=== PATIENT | female | born 1930 | race African-American/Black ===

== ENCOUNTER 2017-04-24 10:49 | Emergency (ER) | payer MEDICARE, OTHER ==
[~2017-04-24] VITALS: Ht 160 cm; Wt 60.0 kg
[~2017-04-24 10:49] MED LIST: ASA; CLONIDINE; DIAZ2TAB3; DONNATAL ELIXIR; ISOS30TA; NASOI; NITROGLYCERIN; PREVACID; VALS320T2; VER40; [UNRECOGNIZED DRUG - CODE]
[2017-04-24] MEDS ORDERED: ONDANSETRON HCL 4MG/2ML VIAL IV STA (11:06)
[2017-04-24] MEDS ORDERED: MORPHINE SULFATE 4 MG/ML CPJ (NOT FOR IM USE) IV STA (11:06)
[2017-04-24 11:41] LABS: EOSINOPHILS % 3.2 % (0.0-5.0); HEMATOCRIT. 35.8 % (36.0-48.0); HEMOGLOBIN. 11.3 g/dL (12.0-16.0); LYMPHOCYTES % 37.5 % (20.0-50.0); MEAN CORPUSCULAR HEMOGLOBIN 27.1 pg (28.0-32.0); MEAN CORPUSCULAR VOLUME 85.6 fL (81.0-99.0); MEAN PLATELET VOLUME 9.8 fl (7.4-10.4); MONOCYTES % 13.4 % (2.0-8.0); NEUTROPHILS % 44.9 % (40.0-76.0); PLATELET 275 x1000/uL (130-400); RED BLOOD CELL COUNT 4.18 mill/uL (4.2-5.4); RED CELL DISTRIBUTION WIDTH 17.8 % (11.6-14.6)
[2017-04-24 11:52] LABS: PROTHROMBIN TIME 10.8 sec (9.4-11.6)
[2017-04-24 11:56] LABS: CARBON DIOXIDE 31 mEq/L (21-32); CHLORIDE 105 mEq/L (98-107)
[2017-04-24 11:57] LABS: TROPONIN I < 0.02 ng/mL (0.00-0.04)
[2017-04-24] MEDS ORDERED: HYDROCODONE/ACETAMINOPHEN 5/325MG TABLET PO PRN (16:00)
[2017-04-24] MEDS ORDERED: AMLODIPINE 10MG TABLET PO SCH (16:00)
[2017-04-24] MEDS ORDERED: MORPHINE SULFATE 4 MG/ML CPJ (NOT FOR IM USE) IV PRN (16:00)
[2017-04-24] MEDS ORDERED: ACETAMINOPHEN 325MG TABLET PO PRN (16:00)
[2017-04-24] MEDS ORDERED: CLONIDINE 0.1MG TABLET PO PRN (16:00)
[2017-04-24] MEDS ORDERED: ISOSORBIDE MONONITRATE 30MG TABLET SR 24HR PO SCH (16:00)
[2017-04-24] MEDS ORDERED: ONDANSETRON HCL 4MG/2ML VIAL IV PRN (16:00)
[2017-04-24] MEDS ORDERED: ENOXAPARIN 40MG/0.4ML SYR SUBCUT SCH (16:00)
[2017-04-24 20:39] VITALS: BP 140/83
[2017-04-25] MEDS ORDERED: ASPIRIN 81MG EC TABLET PO SCH (09:00)
== END 2017-04-24 22:11 | disposition left against medical advice (07) ==
LOC: EDBEDREQ 11:11 → ER 11:40 → EDBEDREQ 13:25 → SUPCPDRO 15:36 → CANRESERV 20:06 → ENRESERV 20:06 → ER 22:11 → CANBEDREQ 22:14
DX: R07.89 Other chest pain (principal); I25.10 Atherosclerotic heart disease of native coronary artery without angina pectoris; I48.0 Paroxysmal atrial fibrillation; J44.9 Chronic obstructive pulmonary disease, unspecified; I10 Essential (primary) hypertension; Z88.0 Allergy status to penicillin; Z88.2 Allergy status to sulfonamides; Z87.01 Personal history of pneumonia (recurrent)
CPT/HCPCS: 36415; 71045; 80053; 83880; 84484; 85025; 85610; 87804; 93005; 93970; 99285

== ENCOUNTER 2021-02-27 10:54 | Emergency (ER) | payer OTHER ==
[~2021-02-27] VITALS: Ht 165.1 cm; Wt 42.0 kg
[~2021-02-27 10:54] MED LIST changes: +AMLO5TAB88 PO; -ASA; -CLONIDINE; -DIAZ2TAB3; -DONNATAL ELIXIR; +HYDR-4134 PO; -ISOS30TA; +ISOS30TA PO; +LOSA1TAB40 PO; -NASOI; -NITROGLYCERIN; -PREVACID; -VALS320T2; +VALS320T2 PO; -VER40; -[UNRECOGNIZED DRUG - CODE]
[2021-02-27 14:24] LABS: BASOPHILS % 0.5 % (0.0-2.0); EOSINOPHILS % 0.4 % (0.0-5.0); HEMATOCRIT. 38.5 % (36.0-48.0); HEMOGLOBIN. 12.5 g/dL (12.0-16.0); LYMPHOCYTES % 22.3 % (20.0-50.0); MEAN CORPUSCULAR HEMOGLOBIN 30.6 pg (28.0-32.0); MEAN PLATELET VOLUME 11.3 fl (7.4-10.4); MONOCYTES % 7.9 % (2.0-8.0); NEUTROPHILS % 68.9 % (40.0-76.0); PLATELET 212 x1000/uL (130-400); RED BLOOD CELL COUNT 4.09 mill/uL (4.2-5.4); RED CELL DISTRIBUTION WIDTH 15.4 % (11.6-14.6)
[2021-02-27 14:32] LABS: CHLORIDE 104 mEq/L (98-107)
[2021-02-27 16:47] LABS: CLARITY URINE CLOUDY (CLEAR); COLOR URINE YELLOW (YELLOW); KETONES URINE NEGATIVE (NEGATIVE); LEUKOCYTE ESTERASE URINE 3+ (NEGATIVE); NITRITE URINE NEGATIVE (NEGATIVE); OCCULT BLOOD URINE NEGATIVE (NEGATIVE); PH URINE 8.5 (4.5-8.0); PROTEIN URINE NEGATIVE (NEGATIVE); SPECIFIC GRAVITY URINE 1.012 (1.005-1.030); UROBILINOGEN URINE 0.2 E.U./dL (0.2-1.0)
[2021-02-27] MEDS ORDERED: CIPR-263 MT (16:51)
[2021-02-27 16:59] VITALS: BP 155/83
== END 2021-02-27 17:33 | disposition home or self-care (01) ==
LOC: ER 10:54
DX: K94.03 Colostomy malfunction (principal); N39.0 Urinary tract infection, site not specified; I11.0 Hypertensive heart disease with heart failure; I50.9 Heart failure, unspecified; Z90.49 Acquired absence of other specified parts of digestive tract; Z79.899 Other long term (current) drug therapy; Z88.0 Allergy status to penicillin; Z88.2 Allergy status to sulfonamides
CPT/HCPCS: 36415; 80053; 81003; 85025; 99283

== ENCOUNTER 2021-04-19 08:13 | Emergency (ER) | payer OTHER ==
[~2021-04-19] VITALS: Ht 165.1 cm; Wt 45.0 kg
[~2021-04-19 08:13] MED LIST changes: +CIPR-263 MT
[2021-04-19 10:01] LABS: BASOPHILS % 1.2 % (0.0-2.0); EOSINOPHILS % 1.7 % (0.0-5.0); HEMATOCRIT. 34.3 % (36.0-48.0); HEMOGLOBIN. 11.4 g/dL (12.0-16.0); LYMPHOCYTES % 30.2 % (20.0-50.0); MEAN CORPUSCULAR HEMOGLOBIN 30.8 pg (28.0-32.0); MEAN CORPUSCULAR VOLUME 92.7 fL (81.0-99.0); MEAN PLATELET VOLUME 10.5 fl (7.4-10.4); MONOCYTES % 11.6 % (2.0-8.0); NEUTROPHILS % 55.3 % (40.0-76.0); PLATELET 218 x1000/uL (130-400); RED CELL DISTRIBUTION WIDTH 14.6 % (11.6-14.6)
[2021-04-19 10:09] LABS: CHLORIDE 108 mEq/L (98-107)
[2021-04-19] MEDS ORDERED: FUROSEMIDE 40MG/4ML VIAL IVP ONE (10:30)
[2021-04-19] MEDS ORDERED: METOPROLOL TARTRATE 5MG/5ML VIAL IV ONE (10:30)
[2021-04-19] MEDS ORDERED: METOPROLOL TARTRATE 25MG TABLET PO ONE (10:30)
[2021-04-19 14:44] LABS: CLARITY URINE CLEAR (CLEAR); COLOR URINE YELLOW (YELLOW); KETONES URINE NEGATIVE (NEGATIVE); LEUKOCYTE ESTERASE URINE 2+ (NEGATIVE); NITRITE URINE NEGATIVE (NEGATIVE); OCCULT BLOOD URINE NEGATIVE (NEGATIVE); PH URINE >=9.0 (4.5-8.0); PROTEIN URINE NEGATIVE (NEGATIVE); SPECIFIC GRAVITY URINE 1.011 (1.005-1.030); UROBILINOGEN URINE 0.2 E.U./dL (0.2-1.0)
[2021-04-19] MEDS ORDERED: CEPHALEXIN 250MG CAPSULE PO ONE (15:15)
[2021-04-19 15:51] VITALS: BP 154/73
[2021-04-19] MEDS ORDERED: CEPH500T MT (16:31)
== END 2021-04-19 17:46 | disposition home or self-care (01) ==
LOC: ER 08:47
DX: I48.0 Paroxysmal atrial fibrillation (principal); I11.0 Hypertensive heart disease with heart failure; I50.9 Heart failure, unspecified; Z20.822 Contact with and (suspected) exposure to COVID-19; Z88.0 Allergy status to penicillin; Z88.2 Allergy status to sulfonamides; Z88.1 Allergy status to other antibiotic agents; Z88.6 Allergy status to analgesic agent; Z90.49 Acquired absence of other specified parts of digestive tract
CPT/HCPCS: 36415; 71045; 80053; 81003; 83735; 83880; 84484; 85025; 87426; 93005; 93970; 99285

== ENCOUNTER 2022-01-17 13:40 | Inpatient (IN) | payer MEDICARE, OTHER ==
[~2022-01-17] VITALS: Ht 161.3 cm; Wt 47.9 kg
[~2022-01-17 13:40] MED LIST changes: -AMLO5TAB88 PO; +APIX5TAB MT; +ASPI-1497 MT; -CIPR-263 MT; +DILT120C46 PO; -HYDR-4134 PO; +LATA2.5D14 EACHEYE; +POLY17PO3 PO; -VALS320T2 PO
[2022-01-17] MEDS: FUROSEMIDE 40MG/4ML VIAL IV ONE ×2 (13:45→14:36)
[2022-01-17] MEDS: NITROGLYCERIN OINT 1GM/INCH UDPKT TD ONE ×2 (13:45→14:36)
[2022-01-17] MEDS ORDERED: ASPIRIN 81MG TABLET PO ONE (13:45)
[2022-01-17 14:38] LABS: HEMATOCRIT. 28.8 % (36.0-48.0); HEMOGLOBIN. 9.3 g/dL (12.0-16.0); MEAN CORPUSCULAR HEMOGLOBIN 25.9 pg (28.0-32.0); MEAN CORPUSCULAR VOLUME 80.7 fL (81.0-99.0); MEAN PLATELET VOLUME 9.6 fl (7.4-10.4); PLATELET 242 x1000/uL (130-400); RED BLOOD CELL COUNT 3.57 mill/uL (4.2-5.4); RED CELL DISTRIBUTION WIDTH 17.2 % (11.6-14.6)
[2022-01-17 14:45] LABS: CHLORIDE 107 mEq/L (98-107)
[2022-01-17] MEDS ORDERED: FUROSEMIDE 20MG/2ML VIAL IVP ONE (14:45)
[2022-01-17 14:49] LABS: INR 1.2; PARTIAL THROMBOPLASTIN TIME 24.7 sec (23.4-31.0); PROTHROMBIN TIME 12.6 sec (9.6-11.0)
[2022-01-17 14:56] LABS: BG CARBOXYHEMOGLOBIN 0.4 % (0.5-1.5); BG DEOXYHEMOGLOBIN 4.2 % (0.0-5.0); BG FRACTION INSPIRED OXYGEN 100; BG HCO3 ACT 28.5 mmol/L (22.0-26.0); BG METHEMOGLOBIN 0.4 % (0.0-1.5); BG OXYGEN SATURATION 95.8 % (92.0-98.5); BG PCO2 42.3 mmHg (35.0-45.0); BG PH 7.446 (7.350-7.450); BG PO2 80.6 mmHg (75.0-100.0); BG SAMPLE SITE RIGHT BRACHIAL; BG TOTAL HEMOGLOBIN 10.5 g/dL (12.0-18.0); BG TOTAL RESPIRATORY RATE 17 b/min; BG VENT MODE MASK - BIPAP
[2022-01-17 16:38] LABS: PLATELET ESTIMATE NORMAL
[2022-01-17] MEDS ORDERED: MAGNESIUM/ALUMINUM HYDROXIDE/SIMETHICONE 30ML UDC PO PRN (17:00)
[2022-01-17] MEDS ORDERED: CLONIDINE 0.1MG TABLET PO PRN (17:00)
[2022-01-17] MEDS ORDERED: ONDANSETRON HCL 4MG/2ML INJ IV PRN (17:00)
[2022-01-17] MEDS ORDERED: GUAIFENESIN 200MG/10ML SUGAR FREE UDC PO PRN (17:00)
[2022-01-17] MEDS ORDERED: IPRATROPIUM/ALBUTEROL 0.5-3(2.5)MG/3ML NEB HHN PRN (17:00)
[2022-01-17 19:30] VITALS: BP 138/65
[2022-01-17 20:00] VITALS: BP 138/65
[2022-01-17 22:00] VITALS: BP 151/59
[2022-01-18] VITALS (15 sets, daily range): BP systolic 110–145; BP diastolic 51–80
[2022-01-18] MEDS ORDERED: AMLO5TAB88 PO (05:06)
[2022-01-18] MEDS ORDERED: FURO-151 PO (05:11)
[2022-01-18] MEDS ORDERED: AMI2 PO (05:13)
[2022-01-18] MEDS ORDERED: PRAV20TA57 PO (05:15)
[2022-01-18] MEDS ORDERED: PANT40TA51 PO (05:16)
[2022-01-18] MEDS ORDERED: CLON-457 PO (05:24)
[2022-01-18] MEDS ORDERED: NITR0.4T49 SL (05:25)
[2022-01-18] MEDS ORDERED: DIAZ2TAB3 PO (05:26)
[2022-01-18 06:11] LABS: CHLORIDE 107 mEq/L (98-107)
[2022-01-18 06:33] LABS: PHOSPHORUS 3.7 mg/dL (2.5-4.9); TOTAL IRON BINDING CAPACITY 322 ug/dL (250-450)
[2022-01-18 06:38] LABS: FERRITIN 21 ng/mL (10-291)
[2022-01-18 07:05] LABS: BASOPHILS % 0.7 % (0.0-2.0); EOSINOPHILS % 0.4 % (0.0-5.0); HEMATOCRIT. 28.1 % (36.0-48.0); HEMOGLOBIN. 8.9 g/dL (12.0-16.0); LYMPHOCYTES % 9.5 % (20.0-50.0); MEAN CORPUSCULAR HEMOGLOBIN 26.2 pg (28.0-32.0); MEAN CORPUSCULAR VOLUME 82.4 fL (81.0-99.0); MEAN PLATELET VOLUME 10.1 fl (7.4-10.4); MONOCYTES % 11.5 % (2.0-8.0); NEUTROPHILS % 77.9 % (40.0-76.0); PLATELET 205 x1000/uL (130-400); RED BLOOD CELL COUNT 3.41 mill/uL (4.2-5.4); RED CELL DISTRIBUTION WIDTH 17.5 % (11.6-14.6)
[2022-01-18 07:14] LABS: VITAMIN B12 SERUM 1679 pg/mL (211-911)
[2022-01-18 08:23] LABS: FOLIC ACID (FOLATE) SERUM > 20.00 ng/mL (>5.38)
[2022-01-18 08:45] LABS: BG BASE EXCESS 2.5 mmol/L (-2.0-2.0); BG CARBOXYHEMOGLOBIN 0.3 % (0.5-1.5); BG FRACTION INSPIRED OXYGEN 100; BG HCO3 ACT 26.5 mmol/L (22.0-26.0); BG METHEMOGLOBIN 0.3 % (0.0-1.5); BG OXYHEMOGLOBIN 98.4 % (94.0-97.0); BG PCO2 38.7 mmHg (35.0-45.0); BG PH 7.454 (7.350-7.450); BG PO2 155.8 mmHg (75.0-100.0); BG SAMPLE SITE RIGHT RADIAL; BG TOTAL RESPIRATORY RATE 17 b/min; BG VENT MODE MASK - BIPAP
[2022-01-18] MEDS ORDERED: FUROSEMIDE 40MG/4ML VIAL IVP SCH (09:00)
[2022-01-18] MEDS ORDERED: FUROSEMIDE 40MG TABLET PO SCH (09:00)
[2022-01-18] MEDS ORDERED: PANTOPRAZOLE SODIUM 40 MG/VIAL IV SCH (09:00)
[2022-01-18] MEDS ORDERED: FUROSEMIDE 100MG/10ML VIAL IVP NR (13:00)
[2022-01-18] MEDS: METHYLPREDNISOLONE SOD SUCC 40 MG/ML VIAL IV SCH (13:30)
[2022-01-18] MEDS: AMIODARONE HCL 200 MG TABLET PO SCH (13:45)
[2022-01-18] MEDS ORDERED: IOHEXOL-350 100 ML BOTTLE ONE (16:20)
[2022-01-18] MEDS ORDERED: IOHEXOL-300 100 ML BOTTLE ONE (16:22)
[2022-01-18] MEDS: FUROSEMIDE 40MG/4ML VIAL IVP SCH (17:00)
[2022-01-18 17:42] LABS: T4 FREE 1.67 ng/dL (0.76-1.46)
[2022-01-18 20:50] LABS: HEMATOCRIT 32.1 % (36.0-48.0); HEMOGLOBIN 10.1 g/dL (12.0-16.0)
[2022-01-18] MEDS: IPRATROPIUM/ALBUTEROL 0.5-3(2.5)MG/3ML NEB HHN SCH (20:57)
[2022-01-18] MEDS: PANTOPRAZOLE SODIUM 40 MG/VIAL IV SCH (21:33)
[2022-01-19] VITALS (14 sets, daily range): BP systolic 128–147; BP diastolic 48–68
[2022-01-19] MEDS: IPRATROPIUM/ALBUTEROL 0.5-3(2.5)MG/3ML NEB HHN SCH ×3 (01:06→13:38)
[2022-01-19 01:16] LABS: HEMATOCRIT 34.3 % (36.0-48.0); HEMOGLOBIN 10.5 g/dL (12.0-16.0)
[2022-01-19] MEDS: METHYLPREDNISOLONE SOD SUCC 40 MG/ML VIAL IV SCH (01:22)
[2022-01-19 06:40] LABS: HEMATOCRIT. 29.4 % (36.0-48.0); HEMOGLOBIN. 9.4 g/dL (12.0-16.0); MEAN CORPUSCULAR HEMOGLOBIN 26.1 pg (28.0-32.0); MEAN CORPUSCULAR VOLUME 81.2 fL (81.0-99.0); MEAN PLATELET VOLUME 10.1 fl (7.4-10.4); PLATELET 225 x1000/uL (130-400); RED BLOOD CELL COUNT 3.62 mill/uL (4.2-5.4); RED CELL DISTRIBUTION WIDTH 17.9 % (11.6-14.6)
[2022-01-19 06:42] LABS: CHLORIDE 106 mEq/L (98-107)
[2022-01-19 07:32] LABS: PLATELET ESTIMATE NORMAL
[2022-01-19] MEDS ORDERED: KCL 20MEQ/100ML PREMIX 100 ML IV NR (09:00)
[2022-01-19] MEDS ORDERED: FUROSEMIDE 40MG/4ML VIAL IVP SCH (09:00)
[2022-01-19] MEDS: PANTOPRAZOLE SODIUM 40 MG/VIAL IV SCH ×2 (09:12→20:45)
[2022-01-19] MEDS: FUROSEMIDE 40MG/4ML VIAL IVP SCH (09:12)
[2022-01-19] MEDS: AMIODARONE HCL 200 MG TABLET PO SCH (09:12)
[2022-01-19] MEDS ORDERED: IOHEXOL-300 100 ML BOTTLE ONE (10:03)
[2022-01-19] MEDS ORDERED: ASPIRIN 81MG TABLET PO SCH (10:15)
[2022-01-19 18:28] LABS: HEMATOCRIT 34.4 % (36.0-48.0); HEMOGLOBIN 10.7 g/dL (12.0-16.0)
[2022-01-19] MEDS ORDERED: SENNOSIDES/DOCUSATE SOD 8.6/50MG TABLET PO PRN (21:00)
[2022-01-20] VITALS (18 sets, daily range): BP systolic 103–157; BP diastolic 48–100
[2022-01-20] MEDS: IPRATROPIUM/ALBUTEROL 0.5-3(2.5)MG/3ML NEB HHN SCH ×4 (01:07→20:44)
[2022-01-20 06:11] LABS: CHLORIDE 103 mEq/L (98-107)
[2022-01-20 06:14] LABS: HEMATOCRIT. 31.2 % (36.0-48.0); HEMOGLOBIN. 9.7 g/dL (12.0-16.0); MEAN CORPUSCULAR HEMOGLOBIN 25.6 pg (28.0-32.0); MEAN PLATELET VOLUME 10.4 fl (7.4-10.4); PLATELET 235 x1000/uL (130-400); RED CELL DISTRIBUTION WIDTH 17.9 % (11.6-14.6)
[2022-01-20 08:31] LABS: PLATELET ESTIMATE NORMAL
[2022-01-20] MEDS ORDERED: METHYLPREDNISOLONE SOD SUCC 40 MG/ML VIAL IV SCH (09:00)
[2022-01-20] MEDS ORDERED: FUROSEMIDE 40MG TABLET PO SCH (09:00)
[2022-01-20] MEDS: PANTOPRAZOLE SODIUM 40 MG/VIAL IV SCH ×2 (09:22→20:38)
[2022-01-20] MEDS: AMIODARONE HCL 200 MG TABLET PO SCH (09:22)
[2022-01-20] MEDS: POLYETHYLENE GLYCOL 3350 (17GM) 1 DOSE PACK PO SCH (09:23)
[2022-01-20] MEDS: FUROSEMIDE 40MG/4ML VIAL IVP SCH (12:51)
[2022-01-20] MEDS ORDERED: LACTULOSE 20G/30ML UDC PO NR (13:00)
[2022-01-21] VITALS (17 sets, daily range): BP systolic 93–152; BP diastolic 41–83
[2022-01-21] MEDS: IPRATROPIUM/ALBUTEROL 0.5-3(2.5)MG/3ML NEB HHN SCH ×4 (02:22→20:40)
[2022-01-21] MEDS: POLYETHYLENE GLYCOL 3350 (17GM) 1 DOSE PACK PO SCH (08:10)
[2022-01-21] MEDS: FUROSEMIDE 40MG/4ML VIAL IVP SCH (08:10)
[2022-01-21] MEDS: AMIODARONE HCL 200 MG TABLET PO SCH (08:10)
[2022-01-21] MEDS: PANTOPRAZOLE SODIUM 40 MG/VIAL IV SCH ×2 (08:10→20:34)
[2022-01-21 08:46] LABS: HEMATOCRIT. 28.7 % (36.0-48.0); HEMOGLOBIN. 9.1 g/dL (12.0-16.0); MEAN CORPUSCULAR VOLUME 82.1 fL (81.0-99.0); MEAN PLATELET VOLUME 10.1 fl (7.4-10.4); PLATELET 214 x1000/uL (130-400); RED BLOOD CELL COUNT 3.49 mill/uL (4.2-5.4); RED CELL DISTRIBUTION WIDTH 18.3 % (11.6-14.6)
[2022-01-21] MEDS ORDERED: PREDNISONE 10MG TABLET PO SCH (09:00)
[2022-01-21 09:13] LABS: PLATELET ESTIMATE NORMAL
[2022-01-21 09:17] LABS: CHLORIDE 102 mEq/L (98-107)
== END 2022-01-21 21:08 | disposition short-term general hospital (02) | DRG 280 ==
LOC: ER 13:40 → 3WST 16:45 → CANRESERV 18:04 → ENRESERV 18:04
PROVIDERS: ADMIT Internal Medicine; ATTEND Internal Medicine
PROC: 5A09357 Assistance with Respiratory Ventilation, Less than 24 Consecutive Hours, Continuous Positive Airway Pressure (ICD-10-PCS; principal; 2022-01-17)
PROC: 5A09357 Assistance with Respiratory Ventilation, Less than 24 Consecutive Hours, Continuous Positive Airway Pressure (ICD-10-PCS; 2022-01-18)
DX: I11.0 Hypertensive heart disease with heart failure (principal); I50.33 Acute on chronic diastolic (congestive) heart failure; I21.A1 Myocardial infarction type 2; J96.01 Acute respiratory failure with hypoxia; K57.91 Diverticulosis of intestine, part unspecified, without perforation or abscess with bleeding; E44.0 Moderate protein-calorie malnutrition; G93.40 Encephalopathy, unspecified; I44.2 Atrioventricular block, complete; N39.0 Urinary tract infection, site not specified; D50.9 Iron deficiency anemia, unspecified; I25.10 Atherosclerotic heart disease of native coronary artery without angina pectoris; R74.01 Elevation of levels of liver transaminase levels; N28.1 Cyst of kidney, acquired; G89.29 Other chronic pain; I48.0 Paroxysmal atrial fibrillation; I27.20 Pulmonary hypertension, unspecified; J43.9 Emphysema, unspecified; Z88.6 Allergy status to analgesic agent; Z88.1 Allergy status to other antibiotic agents; Z88.3 Allergy status to other anti-infective agents; Z88.0 Allergy status to penicillin; Z88.2 Allergy status to sulfonamides; Z93.3 Colostomy status; Z95.0 Presence of cardiac pacemaker; Z90.49 Acquired absence of other specified parts of digestive tract; Z82.49 Family history of ischemic heart disease and other diseases of the circulatory system; Z86.718 Personal history of other venous thrombosis and embolism; Z86.711 Personal history of pulmonary embolism; Z85.038 Personal history of other malignant neoplasm of large intestine; Z79.899 Other long term (current) drug therapy; Z79.01 Long term (current) use of anticoagulants; Z87.891 Personal history of nicotine dependence; E73.9 Lactose intolerance, unspecified; I07.1 Rheumatic tricuspid insufficiency
CPT/HCPCS: 36415; 36600; 71045; 71250; 71260; 74018; 74176; 74177; 80048; 80053; 80076; 82270; 82375; 82607; 82728; 82746; 82805; 83540; 83550; 83735; 83880; 84100; 84145; 84439; 84443; 84484; 85014; 85018; 85025; 85044; 87426; 93005; 93306; 93970; 94640; 94660; 97162; 99291; A6261; C9113; C9803; J1940; J2405; J2920; J3480; J7512; Q9967

== ENCOUNTER 2022-06-01 04:46 | Emergency (ER) | payer MEDICARE, OTHER ==
[~2022-06-01] VITALS: Ht 162.6 cm; Wt 69.0 kg
[~2022-06-01 04:46] MED LIST changes: +AMI2 PO; +AMLO5TAB88 PO; +CLON-457 PO; +DIAZ2TAB3 PO; +FURO-151 PO; +NITR0.4T49 SL; +PANT40TA51 PO; +PRAV20TA57 PO
[2022-06-01 05:43] LABS: BASOPHILS % 0.9 % (0.0-2.0); EOSINOPHILS % 1.3 % (0.0-5.0); HEMATOCRIT. 34.1 % (36.0-48.0); LYMPHOCYTES % 20.1 % (20.0-50.0); MEAN CORPUSCULAR HEMOGLOBIN 26.9 pg (28.0-32.0); MEAN CORPUSCULAR VOLUME 83.1 fL (81.0-99.0); MONOCYTES % 13.5 % (2.0-8.0); NEUTROPHILS % 64.2 % (40.0-76.0); PLATELET 237 x1000/uL (130-400); RED BLOOD CELL COUNT 4.11 mill/uL (4.2-5.4); RED CELL DISTRIBUTION WIDTH 19.5 % (11.6-14.6)
[2022-06-01 06:20] LABS: CLARITY URINE CLOUDY (CLEAR); COLOR URINE ORANGE (YELLOW); KETONES URINE NEGATIVE (NEGATIVE); LEUKOCYTE ESTERASE URINE 3+ (NEGATIVE); NITRITE URINE NEGATIVE (NEGATIVE); OCCULT BLOOD URINE 3+ (NEGATIVE); PH URINE 7.5 (4.5-8.0); PROTEIN URINE 1+ (NEGATIVE); SPECIFIC GRAVITY URINE 1.012 (1.005-1.030); UROBILINOGEN URINE 0.2 E.U./dL (0.2-1.0)
[2022-06-01 06:22] LABS: CHLORIDE 103 mEq/L (98-107)
[2022-06-01 09:30] VITALS: BP 130/70
== END 2022-06-01 11:13 | disposition home or self-care (01) ==
LOC: ER 04:46
DX: N93.9 Abnormal uterine and vaginal bleeding, unspecified (principal)
CPT/HCPCS: 36415; 76856; 80053; 81003; 85025; 86850; 86900; 99284